=== PATIENT | female | born 1990 | race Caucasian/White ===

== ENCOUNTER 2021-06-07 18:45 | Inpatient (IN) ==
[2021-06-07] MEDS ORDERED: LACTATED RINGER'S 1,000 ML IV PRN (18:56)
[2021-06-07] MEDS ORDERED: OXYTOCIN 30 UNITS/500 ML BAG IV PRN ×2 (18:56→22:38)
--- NOTE | 2021-06-07 19:05 | History & Physical Report ---
Date of Service June 07, 2021 Assessment & Plan (1) : Plan: 31 y/o at 40 1/7 wga in labor VSS, initial BP was taken during a contraction, will repeat Fetus cat 1 Labor - manage expectantly GBS neg Epidural PRN History of Present Illness Chief Complaint: Contractions Primary Care Provider: NO PCP 31 y/o at 40 1/7 wga w/ MARCI 9/4 by LMP 08/30 who presents w/ c/o ctx increasing in frequency and intensity. +FM; denies LOF, VB PNI: Hx LGA x 2 (9+ both) Rh neg Past BILINGUAL SECRETARY Hx: G1 2016 at 38 wks, 9lb 2 oz G2 2019 at 41 wks, 9lb 6oz G3 current Menarche 14, cycles q30d Denies hx STIs Denies hx abnl pap, 08/2019 pap wnl reported Allergies Allergy/AdvReac Type Severity Reaction Status Date / Time No Known Allergies Allergy Verified 06/07/21 19:07 Home Medications Medication Instructions Recorded Confirmed Type prenat.vits,eugenia,uej-nwlt-jrdyv 1 tab PO DAILY 10/23/20 06/07/21 History Patient History Medical History (Updated 06/07/21 @ 19:20 by Minnie Valdivia MD) No pertinent past medical history Surgical History (Updated 06/07/21 @ 19:14 by Minnie Valdivia MD) No pertinent past surgical history Social History (Updated 10/23/20 @ 13:50 by Shaina Bravo) Smoking Status: Never smoker marital status: marital status details: Ashutosh (30) [phone] Current Living Situation: Spouse Current Living Situation Comment: lives with spouse, children, no pets current occupational status: unemployed Physical Exam Constitutional: WD/WN, vitals as above Respiratory: normal respiratory effort; no respiratory distress and no labored breathing Psychiatric: A+Ox3, euthymic affect Genitourinary: OB Exam Abdomen: + vertex and + estimated weight (9) Manual OB Exam: + cervical dilation 5 cm, + cervical effacement 70% and + station -2 OB Exam Monitor Tracing: + external FHT monitor used, + external uterine monitor used (q3-5) and + category I (135/mod/+accel/-decel) Results & Data ([facility]) Vital Signs (Past 12 Hours) Vital Signs Pulse BP 06/07/21 18:53 83 142/80 H Laboratory Results OB Labs: Blood Type O Negative 10/29/20 Antibody Screen NEGATIVE 03/11/21 Hemoglobin 11.7 g/dL (12.0-16.0) L 03/11/21 Hematocrit 35.9 % (37-47) L 03/11/21 Mean Corpuscular Volume 84.8 fL (80-100) 10/29/20 Platelet Count 349 K/uL (130-400) 10/29/20 Rubella IgG Antibody Immune (Immune) 10/29/20 Rapid Plasma Reagin Nonreactive (Nonreactive) 10/29/20 Hepatitis B Surface Antigen Neg (Neg) 10/29/20 HIV (1&2) Ab and P24 Ag, 4th Gener Neg (Neg) 10/29/20 Glucose 1 Hour 50 gm Load 121 mg/dl (70-130) 03/11/21 OB Optional Labs: Chlamydia trachomatis RNA NOT DETECTED (NOT DETECTED) 10/29/20 Neisseria gonorrhoeae RNA NOT DETECTED (NOT DETECTED) 10/29/20 Labs Reviewed: declines genetics/cf/sma.--akh declines quad GBS neg Diagnostic Findings Ant plac Coding Level of Care Code None Diagnoses Z34.90
[2021-06-07 19:26] LABS: Hematocrit (blood only) 36.9 % (37-47); Hemoglobin 12.3 g/dL (12.0-16.0); Mean Corpuscular Hemoglobin 30.1 pg (25-34); Mean Corpuscular Hgb Conc 33.3 g/dL (32-36); Mean Corpuscular Volume 90.2 fL (80-100); Mean Platelet Volume 10.4 fL (7.4-10.4); Platelet Count 256 K/uL (130-400); RDW Standard Deviation 45.7 fL (36.4-46.3); Red Blood Count 4.09 M/uL (4.2-5.4); White Blood Count 10.55 K/uL (4.8-10.8)
[2021-06-07] MEDS ORDERED: fentaNYL citrate 100 MCG/2 ML VIAL ONE (19:35)
[2021-06-07] MEDS ORDERED: fentaNYL 2MCG/ML ROPIVACAINE 1.25MG/ML 100 ML BAG EPI ONE (19:35)
[2021-06-07] MEDS ORDERED: ePHEDrine sulfate 50 MG/ML AMP ONE (19:35)
[2021-06-07] MEDS ORDERED: SODIUM CHLORIDE 0.9% INJ 10 ML VIAL ONE (19:35)
[2021-06-07] MEDS ORDERED: BUPIVACAINE 0.25% 30 ML VIAL ONE (19:35)
[2021-06-07] MEDS ORDERED: NALOXONE HCL 1 MG in SODIUM CHLORIDE 0.9% 1000ML 1,000 ML IV PRN (20:04)
[2021-06-07] MEDS ORDERED: ONDANSETRON INJ 2 MG/ML 2 ML VIAL IV PRN (20:04)
[2021-06-07] MEDS ORDERED: ePHEDrine sulfate 50 MG/ML AMP IV PRN (20:04)
[2021-06-07] MEDS ORDERED: fentaNYL 2MCG/ML ROPIVACAINE 1.25MG/ML 100 ML BAG EPI PRN (20:04)
[2021-06-07] MEDS ORDERED: NALBUPHINE HCL INJ 10 MG/ML AMP IV PRN (20:04)
[2021-06-07] MEDS ORDERED: diphenhydrAMINE 50 MG/ML VIAL IV PRN (20:04)
[2021-06-07] MEDS ORDERED: NALOXONE HCL 0.4 MG/1 ML VIAL/CARP IV PRN (20:04)
--- NOTE | 2021-06-07 20:12 | Anesthesiology Consultation ---
Date of Service June 07, 2021 Assessment & Plan Chart Review Chart Review: Patient NOT seen in Pre Admission Testing and Acceptable Risk for Labor Epidural Consults Requested none ASA ASA2 Proposed Anesthesia Anesthesia Type: Labor Epidural and CSE Risk / Benefits Reviewed With: PT / POA / Parent / Guardian, Accepts Plan and Informed Consent Obtained History Height/Weight Height: 5 ft 8 in Weight: 96.615 kg Allergies Allergy/AdvReac Type Severity Reaction Status Date / Time No Known Allergies Allergy Verified 06/07/21 19:07 Medications Home Medications Medication Instructions Recorded Confirmed Last Taken prenat.vits,eugenia,pim-qsat-nlaxx 1 tab PO DAILY 10/23/20 06/07/21 06/06/21 20:00 Active Medications Generic Name Dose Route Start Last Admin Trade Name Freq PRN Reason Stop Dose Admin Lactated Ringer's 1,000 mls @ 125 mls/hr 06/07/21 18:56 06/07/21 19:33 Lr IV 06/09/21 18:55 125 mls/hr .Q8H PRN Infusion L&D Protocol Protocol NPO Date Last Intake of Fluids: 06/07/21 Time Last Intake of Fluids: 18:00 Date Last Intake of Solids: 06/07/21 Time Last Intake of Solids: 12:00 Past Medical History Medical History (Updated 06/07/21 @ 19:20 by Minnie Valdivia MD) No pertinent past medical history Exercise / Class Metabolic Activity II 4-5 Yardwork/Stairs/Walk up hill Past Surgical History Surgical History (Updated 06/07/21 @ 19:14 by Minnie Valdivia MD) No pertinent past surgical history Past Anesthesia History No Hx of Anesthesia Complications and No Family Hx of Anesthesia Complications History of PONV No Hx of PONV and No Hx of Motion Sickness Social History Smoking Status: Never smoker Hx Alcohol Use: No Hx Substance Use: No substance use type: does not use Review of Systems no chest pain or sob Physical Exam Vital Signs Last Vital Signs Temp 37.1 C 06/07/21 19:09 Pulse 83 06/07/21 19:09 Resp 18 06/07/21 19:09 BP 142/80 H 06/07/21 19:09 ENMT Mouth: no TMJ abnormality Thyromental Distance: > or= 3.5 Finger Breadths Mallampati Class: II Neck normal visual inspection Respiratory normal respiratory effort Auscultation: lungs clear to auscultation bilaterally Cardiovascular Rate/Rhythm: regular rate and regular rhythm Musculoskeletal Spine: normal cervical ROM Neurologic moves all extremities Psychiatric Orientation: alert and oriented x 3 Testing Laboratory Results 06/07/21 19:15
--- NOTE | 2021-06-07 22:25 | Delivery Summary ---
Vaginal Delivery Summary Date of Service June 07, 2021 Vaginal Delivery Summary and 2nd Degree LAC PREOPERATIVE DIAGNOSIS: 1. Single intrauterine at 40 1/7 wga 2. Labor 3. History of LGA 4. Rh negative POSTOPERATIVE DIAGNOSIS: 1. Single intrauterine at 40 1/7 wga 2. Labor 3. History of LGA 4. Rh negative 5. Delivered PROCEDURE: 1. Normal spontaneous vaginal delivery. SURGEON: Minnie Valdivia MD ANESTHESIA: Epidural. ESTIMATED BLOOD LOSS: 300 mL FLUIDS: Continuous LR. URINE OUTPUT: None. COMPLICATIONS: None. CONDITION: Stable. INDICATIONS: 31 y/o at 40 1/7 wga presented w/ c/o ctx increasing in frequency and intensity at around 7pm. She was checked and found to be 5cm. She was given an epidural for pain control. She then underwent spontaneous rupture of membranes and was found to be complete and desired to push approxima tely 2 hours later. FINDINGS: A viable male weight pending with Apgars of 8 and 9 at 1 and 5 minutes respectively. SPECIMEN: Cord blood OPERATIVE REPORT: The patient progressed to 10 cm, 100% effaced and +2 station, pushed over intact perineum with anesthesia to deliver a viable male , weight and Apgars as above. Head of delivered in CHASITY position. No nuchal cord was present. Body and shoulders were delivered without difficulty. was delivered to maternal abdomen and nursing staff. Delayed cord clamping was performed for 60 seconds. Cord was clamped and cut. Cord blood was obtained. Placenta delivered spontaneously intact with 3-vessel cord. IV oxytocin and fundal massage were given for excellent hemostasis. Vagina, cervix, perineum, and placenta were inspected. A second degree laceration was noted and repaired in the usual fashion using 3-0 Vicryl. Sponge and needle counts correct x2. No sponges were left behind. Mother and stable in immediate period. [facility] Vaginal Delivery Charge Vaginal Delivery Codes: 31579 global code for the antepartum, delivery, and post- Delivery Type Details: and 2nd Degree LAC
[2021-06-07] MEDS ORDERED: bisacodyL 10 MG SUPP PR PRN (22:38)
[2021-06-07] MEDS ORDERED: DIPHTHERIA/TETANUS/PERTUSSIS 0.5 ML SYR/VIAL IM ONE (22:38)
[2021-06-07] MEDS ORDERED: SUPERCREAM 0.870% 15 GM JAR EXT PRN (22:38)
[2021-06-07] MEDS ORDERED: ACETAMINOPHEN 325 MG TAB PO PRN (22:38)
[2021-06-07] MEDS ORDERED: HYDROCORTISONE ACETATE 25 MG SUPP PR PRN (22:38)
[2021-06-07] MEDS ORDERED: BENZOCAINE 20% AER SPR 82.5 GM CAN EXT PRN (22:38)
[2021-06-08] MEDS: IBUPROFEN 600 MG TAB PO PRN ×5 (04:41→23:17)
--- NOTE | 2021-06-08 06:55 | Obstetrical Progress Note ---
Date of Service June 08, 2021 Assessment & Plan (1) : 31 yo PP1 from , doing well -Meeting all pp milestones -O-/rubella immune/, baby Rh neg -f/u 6 weeks for appt, plan for d/c home tomorrow Subjective Ambulation: ambulating normally Voiding: no voiding problems Passing Gas:: Yes Diet Tolerance:: regular diet Lochia:: Moderate Feeding Type:: breast feeding Pain well managed with medication Review of Systems Denies fevers, chills, n/v, RAZA, CP, SOB Physical Exam Constitutional WD/WN, vitals as above no acute distress Respiratory normal respiratory effort, lungs clear to auscultation Cardiovascular RRR, no murmur, no edema Gastrointestinal (Abdomen) Percussion/Palpation: abdomen soft; abdomen nontender fundus firm at umbilicus and NT Musculoskeletal BLE symmetric, nonerythematous, nontender Results & Data ([facility]) Vital Signs (Past 12 Hours) Vital Signs Temp Pulse Pulse Resp BP BP Pulse Ox 06/08/21 04:42 98.2 F 98 H 18 125/76 06/08/21 00:05 97.7 F 81 18 124/80 06/07/21 23:49 81 125/60 06/07/21 23:45 20 06/07/21 23:27 74 134/62 06/07/21 23:15 18 06/07/21 23:12 91 H 129/60 06/07/21 22:57 76 125/64 06/07/21 22:45 18 06/07/21 22:42 79 122/58 L 06/07/21 22:30 20 06/07/21 22:28 74 122/59 L 06/07/21 22:15 20 06/07/21 22:00 97.9 F 18 06/07/21 21:59 83 121/69 06/07/21 21:46 93 H 96 06/07/21 21:45 18 06/07/21 21:42 83 119/67 06/07/21 21:40 82 96 06/07/21 21:35 92 H 96 06/07/21 21:30 93 H 97 06/07/21 21:25 89 97 06/07/21 21:20 104 H 99 06/07/21 21:15 100 H 98 06/07/21 21:12 88 123/56 L 06/07/21 21:10 81 98 06/07/21 21:05 79 98 06/07/21 21:00 81 97 06/07/21 20:56 77 16 118/56 L 06/07/21 20:55 90 98 06/07/21 20:52 87 16 118/64 06/07/21 20:50 96 H 99 06/07/21 20:46 92 H 16 128/63 06/07/21 20:45 84 96 06/07/21 20:42 86 115/71 06/07/21 20:41 95 H 18 91 06/07/21 20:40 87 95 06/07/21 20:36 86 129/64 06/07/21 20:35 91 H 18 97 06/07/21 20:30 93 H 16 126/58 L 97 06/07/21 20:28 89 18 122/59 L 06/07/21 20:26 92 H 18 114/58 L 06/07/21 20:25 85 97 06/07/21 20:24 78 20 111/59 L 06/07/21 20:22 79 20 119/57 L 06/07/21 20:20 80 97 06/07/21 20:19 75 18 125/60 06/07/21 20:15 96 H 100 06/07/21 20:10 88 100 06/07/21 19:09 98.8 F 83 18 142/80 H
[2021-06-08] MEDS: DOCUSATE SODIUM 100 MG CAP PO SCH ×2 (07:46→20:51)
[2021-06-08] MEDS: PRENATAL VITAMIN 1 TAB PO SCH (07:46)
--- NOTE | 2021-06-08 08:06 | Anesthesiology Progress Note ---
Date of Service June 08, 2021 Anesthesia Post Procedure Vital Signs Vital Signs: Temp Pulse Pulse Resp BP BP Pulse Ox 06/08/21 04:42 36.8 C 98 H 18 125/76 06/08/21 00:05 36.5 C 81 18 124/80 06/07/21 23:49 81 125/60 06/07/21 23:45 20 06/07/21 23:27 74 134/62 06/07/21 23:15 18 06/07/21 23:12 91 H 129/60 06/07/21 22:57 76 125/64 06/07/21 22:45 18 06/07/21 22:42 79 122/58 L 06/07/21 22:30 20 06/07/21 22:28 74 122/59 L 06/07/21 22:15 20 06/07/21 22:00 36.6 C 18 06/07/21 21:59 83 121/69 06/07/21 21:46 93 H 96 06/07/21 21:45 18 06/07/21 21:42 83 119/67 06/07/21 21:40 82 96 06/07/21 21:35 92 H 96 06/07/21 21:30 93 H 97 06/07/21 21:25 89 97 06/07/21 21:20 104 H 99 06/07/21 21:15 100 H 98 06/07/21 21:12 88 123/56 L 06/07/21 21:10 81 98 06/07/21 21:05 79 98 06/07/21 21:00 81 97 06/07/21 20:56 77 16 118/56 L 06/07/21 20:55 90 98 06/07/21 20:52 87 16 118/64 06/07/21 20:50 96 H 99 06/07/21 20:46 92 H 16 128/63 06/07/21 20:45 84 96 06/07/21 20:42 86 115/71 06/07/21 20:41 95 H 18 91 06/07/21 20:40 87 95 06/07/21 20:36 86 129/64 06/07/21 20:35 91 H 18 97 06/07/21 20:30 93 H 16 126/58 L 97 06/07/21 20:28 89 18 122/59 L 06/07/21 20:26 92 H 18 114/58 L 06/07/21 20:25 85 97 06/07/21 20:24 78 20 111/59 L 06/07/21 20:22 79 20 119/57 L 06/07/21 20:20 80 97 06/07/21 20:19 75 18 125/60 06/07/21 20:15 96 H 100 06/07/21 20:10 88 100 06/07/21 19:09 37.1 C 83 18 142/80 H 06/07/21 18:53 37.1 C 83 18 142/80 H Notes Mental Status: alert / awake / arousable Nausea / Vomiting: adequately controlled Pain: adequately controlled Airway Patency, RR, SpO2: stable & adequate BP & HR: stable & adequate Hydration State: stable & adequate Neuraxial Anesthesia: was administered, sensory block is resolving and see Notes below (epidural catheter removed with tip intact) Anesthetic Complications: no major complications apparent
--- NOTE | 2021-06-08 08:06 | Anesthesia Procedure Note ---
Date of Service June 08, 2021 Anesthesia Post Epidural Note Vital Signs Vital Signs: Temp Pulse Resp BP Pulse Ox 36.8 C 98 H 18 125/76 96 06/08/21 04:42 06/08/21 04:42 06/08/21 04:42 06/08/21 04:42 06/07/21 21:46 Notes Mental Status: alert / awake / arousable Nausea / Vomiting: adequately controlled Pain: adequately controlled Airway Patency, RR, SpO2: stable & adequate BP & HR: stable & adequate Hydration State: stable & adequate Neuraxial Anesthesia: was administered and sensory block is resolving Anesthetic Complications: no major complications apparent Epidural: Removed without complications and With tip intact
[2021-06-08] MEDS ORDERED: bisacodyL 5 MG TABEC PO SCH (20:00)
--- NOTE | 2021-06-09 06:08 | Obstetrical Progress Note ---
Date of Service <Yareli Stevens MD - Last Filed: 06/09/21 07:13> June 09, 2021 Assessment & Plan <Yareli Stevens MD - Last Filed: 06/09/21 07:13> (1) Vaginal delivery: 31 yo now PPD2 from at 40wk2d -Continue routine care, anticipated d/c today, discussed d/c with patient -Vitals reviewed- HDS, afebrile -Blood type O-, GBS-, Rubella immune -Rh neg, received Rhogam at 28 wks, baby also Rh neg -Encourage ambulation, regular diet -Pain control with Motrin, Tylenol PRN -Encourage -Hgb 12.3 on admission, asymptomatic -F/u in 6 weeks with OB <Jessy Mora MD, FACOG - Last Filed: 06/09/21 08:05> (1) Vaginal delivery: Subjective <Yareli Stevens MD - Last Filed: 06/09/21 07:13> Ambulation: ambulating normally Voiding: no voiding problems Passing Gas:: Yes Diet Tolerance:: regular diet Lochia:: Small Feeding Type:: breast feeding Current Pain Level(1-10): 0 Pt and baby doing well, no acute events or complaints. Has not passed BM yet. Pain well managed with medication Review of Systems Denies fevers/chills. Denies dyspnea, cough. Denies chest pain. Denies breast pain or discharge. Denies dysuria. Denies headache. Physical Exam <Yareli Stevens MD - Last Filed: 06/09/21 07:13> General: Alert, oriented, no acute distress Cardiac: Regular rate and rhythm, normal S1, S2. No murmurs appreciated. Respiratory: Clear to auscultation b/l with good air flow entry, symmetric chest rise and fall. No wheezes or crackles. No increased work of breathing or accessory muscle use Abdomen: Soft, nontender, nondistended. Fundus firm and palpable at 2 cm below umbilicus. No guarding or rebound. Skin: No rashes or lesions Extremities: Warm, dry, well-perfused with capillary refill <2s b/l. No lower extremity edema, erythema or swelling. Negative Saira's sign b/l. Results & Data ([facility]) <Yareli Stevens MD - Last Filed: 06/09/21 07:13> Vital Signs (Past 12 Hours) Vital Signs Temp Pulse Resp BP 06/08/21 23:15 36.9 C 83 18 121/82 06/08/21 20:10 36.4 C L 94 H 18 119/74 <Jessy Mora MD, FACOG - Last Filed: 06/09/21 08:05> Co-Signing Physician Notes Resident Physician Supervision Note: I interviewed and examined the patient. Discussed with Dr. Stevens and agree with findings and plan as documented in the note. Any exceptions or clarifications are listed here: [None] Documented By: Jessy Mora MD, FACOG Resident Activity Tracking <Yareli Stveens MD - Last Filed: 06/09/21 07:13> Resident Involvement: Resident Care Provided Care Provided: OB Delivery
[2021-06-09] MEDS: DOCUSATE SODIUM 100 MG CAP PO SCH (07:49)
[2021-06-09] MEDS: PRENATAL VITAMIN 1 TAB PO SCH (07:49)
[2021-06-09] MEDS: IBUPROFEN 600 MG TAB PO PRN (07:49)
== END 2021-06-09 10:15 | disposition home or self-care (01) | DRG 807 ==
LOC: OPB 18:45 → 4S1 18:45 → 4S2 06-08 00:14

== ENCOUNTER 2023-05-20 07:48 | Inpatient (IN) ==
[2023-05-20] MEDS ORDERED: LIDOCAINE 1% LOCAL 20 ML VIAL INFIL PRN (07:53)
[2023-05-20] MEDS ORDERED: OXYTOCIN 30 UNITS/500 ML BAG IV PRN ×3 (07:53→19:09)
--- NOTE | 2023-05-20 07:59 | History & Physical Report ---
Date of Service May 20, 2023 Assessment & Plan (1) Cholestasis during : Plan Plan for induction. Favorable cervix. plan pitocin and arom. Fetus category one. Admission and Anticipated Discharge Date Admission Date: May 20, 2023 History of Present Illness Chief Complaint: cholestasis Primary Care Provider: NO PCP Patient is a 33yowf with iup at 38 4/7 who was recently diagnosed with cholestasis. Reassuring testing. Given gestational age, recommendation for induction. Favorable cervix. Minimal contractions. Good fm. and Delivery Plans Need for Rhogam d/t Rh negative mother given 03/09/23-KESHIA Hx LGA EFW 98% at 36 weeks Gestational diabetes - patient declined glucose testing. Declines blood sugar monitoring or follow-up with dietary. Declines monitoring/ testing. *Wkly NSTs @32wks and Twice wkly @36wks *Serial growth US @28wks *Deliver by [facility] Cholestasis elevated bile acids at 38 weeks OB Labs: Blood Type O Negative 11/11/22 Antibody Screen NEGATIVE 03/09/23 Hemoglobin 10.7 g/dl (12.0-16.0) L 03/09/23 Hematocrit 32.5 % (37.0-47.0) L 03/09/23 Mean Corpuscular Volume 84.8 fL (80.0-100.0) 11/11/22 Platelet Count 336 K/uL (130-400) 11/11/22 Rubella IgG Antibody Immune (Immune) 11/11/22 Rapid Plasma Reagin Nonreactive (Nonreactive) 11/11/22 Hepatitis B Surface Antigen Neg (Neg) 10/29/20 Hepatitis B Surface Antigen. NON-REACTIVE (NON-REACTIVE) 11/11/22 Hepatitis C Antibody (EIA) NON-REACTIVE (NON-REACTIVE) 11/11/22 HIV (1&2) Ab and P24 Ag, 4th Gener Neg (Neg) 10/29/20 HIV (1&2) Ag and Ab Confirmation NON-REACTIVE (NON-REACTIVE) 11/11/22 Glucose 1 Hour 50 gm Load 83 mg/dl (70-130) 12/15/22 OB Optional Labs: Chlamydia trachomatis RNA Not Detected (NotDetected) 11/11/22 Neisseria gonorrhoeae RNA Not Detected (NotDetected) 11/11/22 Labs Reviewed: declines cfdna, cf/sma - sln gbs neg Allergies Allergy/AdvReac Type Severity Reaction Status Date / Time No Known Allergies Allergy Verified 05/18/23 09:10 Home Medications Medication Instructions Recorded Confirmed Type prenat.vits,eugenia,opx-wqtq-yrtwl 1 tab PO DAILY 10/23/20 05/20/23 History Patient History Medical History (Updated 05/20/23 @ 08:04 by Christina Owusu MD, FACOG) History of chicken pox Surgical History No pertinent past surgical history Family History Denies family history of Ovarian cancer Breast cancer Colorectal cancer Social History Smoking Status: Never smoker Second Hand Exposure: No; Do You Dip or Chew Tobacco: No; Hx Alcohol Use: No Hx Substance Use: No Preferred Language: [place] Islander Communication Ability: Effective Forensic Identification Specialist Required: No Beliefs That Will Affect Care: None marital status: marital status details: Ashutosh Hua (33) [phone] Current Living Situation: Spouse Current Living Situation Comment: lives with spouse, 3 children, no pets current occupational status: unemployed current occupation: homemaker Other Information That Helps Us Care for You: No Feels Safe at Home: Yes Safety Concerns: Feels Safe At This Time Assistive Devices: None OB History Past Pregnancies Del. Date GA wks Lbr Lgth wt Sex Type del Anes Place Del Prov ? Comment 01/04/17 38 9lb 2oz F Epidu ral Other [place] No Cholestasis 06/20/19 41 9lb 6oz. 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
[2023-05-20 08:22] LABS: Hematocrit (blood only) 33.3 % (37.0-47.0); Hemoglobin 10.7 g/dl (12.0-16.0); Mean Corpuscular Hemoglobin 28.2 pg (25.0-34.0); Mean Corpuscular Hgb Conc 32.1 g/dL (32.0-36.0); Mean Corpuscular Volume 87.6 fL (80.0-100.0); Platelet Count 276 K/uL (130-400); RDW Coefficient of Variation 15.1 % (11.5-14.5); RDW Standard Deviation 47.5 fL (36.4-46.3); White Blood Count 11.13 K/ul (4.8-10.8)
[2023-05-20] MEDS: LACTATED RINGER'S 1,000 ML IV PRN ×3 (09:00→15:58)
[2023-05-20] MEDS ORDERED: ePHEDrine sulfate 50 MG/ML AMP ONE (15:00)
[2023-05-20] MEDS ORDERED: fentaNYL citrate PF 100 MCG/2 ML VIAL ONE (15:00)
[2023-05-20] MEDS ORDERED: BUPIVACAINE 0.25% PF 30 ML VIAL ONE (15:01)
[2023-05-20] MEDS ORDERED: LIDOCAINE 2%/EPINEPHRINE 1:200,000 20 ML PF ONE (15:01)
[2023-05-20] MEDS ORDERED: fentaNYL 2MCG/ML ROPIVACAINE 1.25MG/ML 100 ML BAG EPI ONE (15:01)
[2023-05-20] MEDS ORDERED: SODIUM CHLORIDE 0.9% PF INJ 10 ML VIAL ONE (15:01)
[2023-05-20] MEDS ORDERED: ONDANSETRON INJ 2 MG/ML 2 ML VIAL IV PRN (15:50)
[2023-05-20] MEDS ORDERED: fentaNYL citrate PF 100 MCG/2 ML VIAL EPI STA (15:50)
[2023-05-20] MEDS ORDERED: fentaNYL citrate PF 100 MCG/2 ML VIAL EPI PRN (15:50)
[2023-05-20] MEDS ORDERED: ePHEDrine sulfate 50 MG/ML AMP IV PRN (15:50)
[2023-05-20] MEDS ORDERED: NALOXONE HCL 1 MG in SODIUM CHLORIDE 0.9% 1000ML 1,000 ML IV PRN (15:50)
[2023-05-20] MEDS ORDERED: SODIUM CHLORIDE 0.9% PF INJ 10 ML VIAL EPI PRN (15:50)
[2023-05-20] MEDS ORDERED: NALBUPHINE HCL INJ 10 MG/ML AMP IV PRN (15:50)
[2023-05-20] MEDS ORDERED: NALOXONE HCL 0.4 MG/1 ML VIAL/CARP IV PRN (15:50)
[2023-05-20] MEDS ORDERED: SODIUM CHLORIDE 0.9% PF INJ 10 ML VIAL EPI STA (15:50)
[2023-05-20] MEDS ORDERED: ROPIVACAINE 0.5% PF 5 MG/ML 20 ML VIAL EPI PRN (15:50)
[2023-05-20] MEDS ORDERED: BUPIVACAINE 0.25% PF 30 ML VIAL EPI PRN (15:50)
[2023-05-20] MEDS ORDERED: fentaNYL 2MCG/ML ROPIVACAINE 1.25MG/ML 100 ML BAG EPI PRN (15:50)
[2023-05-20] MEDS ORDERED: LIDOCAINE 2%/EPINEPHRINE 1:200,000 20 ML PF EPI STA (15:50)
[2023-05-20] MEDS ORDERED: BUPIVACAINE 0.25% PF 30 ML VIAL EPI STA (15:50)
[2023-05-20] MEDS ORDERED: diphenhydrAMINE 50 MG/ML VIAL IV PRN (15:50)
[2023-05-20] MEDS ORDERED: LIDOCAINE 2% MPF LOCAL 5 ML VIAL EPI PRN (15:50)
--- NOTE | 2023-05-20 15:52 | Anesthesiology Consultation ---
Date of Service May 20, 2023 Assessment & Plan Chart Review Chart Review: Patient NOT seen in Pre Admission Testing and Acceptable Risk for Labor Epidural Consults Requested none ASA ASA2 Proposed Anesthesia Anesthesia Type: Labor Epidural Risk / Benefits Reviewed With: PT / POA / Parent / Guardian, Accepts Plan and Informed Consent Obtained History Height/Weight Height: 5 ft 9 in Weight: 88.904 kg Allergies Allergy/AdvReac Type Severity Reaction Status Date / Time No Known Allergies Allergy Verified 05/18/23 09:10 Medications Home Medications Medication Instructions Recorded Confirmed Last Taken prenat.vits,eugenia,ssk-vyxq-brwab 1 tab PO DAILY 10/23/20 05/20/23 05/19/23 Active Medications Generic Name Dose Route Start Last Admin Trade Name Freq PRN Reason Stop Dose Admin Lactated Ringer's 1,000 mls @ 125 mls/hr 05/20/23 07:53 05/20/23 15:03 Lr IV 05/22/23 07:52 999 mls/hr .Q8H PRN Administration L&D Protocol Protocol Oxytocin 30 units in 500 mls @ 16 mls/hr 05/20/23 08:55 05/20/23 14:45 Pitocin IV 05/22/23 08:54 0.96 units/hr .Q24H PRN 16 mls/hr Labor Induction/Augmentation Titration Protocol 0.96 UNITS/HR Past Medical History Medical History (Updated 05/20/23 @ 08:04 by Christina Owusu MD, FACOG) History of chicken pox Exercise / Class Metabolic Activity II 4-5 Yardwork/Stairs/Walk up hill Past Family History Family History Denies family history of Ovarian cancer Breast cancer Colorectal cancer Past Surgical History Surgical History No pertinent past surgical history Past Anesthesia History No Hx of Anesthesia Complications and No Family Hx of Anesthesia Complications History of PONV No Hx of PONV and No Hx of Motion Sickness Social History Smoking Status: Never smoker Do You Dip or Chew Tobacco: No Hx Alcohol Use: No Hx Substance Use: No substance use type: does not use Physical Exam Vital Signs Last Vital Signs Temp 36.6 C 05/20/23 11:30 Pulse 71 08/18/23 15:46 Resp 20 05/20/23 14:30 BP 126/58 L 05/20/23 14:31 Pulse Ox 99 05/20/23 15:46 ENMT Mouth: no dentition abnormality Thyromental Distance: > or= 3.5 Finger Breadths Mallampati Class: II Neck normal visual inspection Respiratory normal respiratory effort Auscultation: lungs clear to auscultation bilaterally Cardiovascular Rate/Rhythm: regular rate and regular rhythm Psychiatric Orientation: alert Testing Laboratory Results 05/20/23 08:09
--- NOTE | 2023-05-20 16:49 | Labor Progress Brief Note ---
Date of Service May 20, 2023 Subjective comfortable with epidural. Assessment & Plan (1) Cholestasis during : Plan continue current management. fetus category one. anticipate . Admission and Anticipated Discharge Date Admission Date: May 20, 2023 Physical Exam Physical Exam: cx--5/75/-2 toco--q2-4min, pit at 16 efm--115 with mod variabiltiy, accels to the 160s, no decels arom--clear. Results & Data Vital Signs (Past 12 Hours) Vital Signs Temp Pulse Resp BP Pulse Ox 05/20/23 08:27 36.7 C 20 05/20/23 16:45 99 05/20/23 16:45 67 05/20/23 16:45 90/45 L 05/20/23 16:45 74 05/20/23 16:45 95/47 L 05/20/23 16:40 100 05/20/23 16:40 89 05/20/23 16:35 100 05/20/23 16:35 96 H 05/20/23 16:30 100 05/20/23 16:30 82 05/20/23 16:30 116/58 L 05/20/23 16:30 16 05/20/23 16:30 16 05/20/23 16:10 16 05/20/23 16:10 16 05/20/23 16:15 18 05/20/23 16:15 18 05/20/23 16:20 16 05/20/23 16:20 16 05/20/23 16:28 75 05/20/23 16:28 121/58 L 05/20/23 16:25 99 05/20/23 16:25 83 05/20/23 15:00 18 05/20/23 15:00 36.7 C 18 05/20/23 16:20 100 05/20/23 16:20 75 05/20/23 16:21 74 05/20/23 16:21 117/71 05/20/23 16:15 100 05/20/23 16:15 78 05/20/23 16:15 125/59 L 05/20/23 16:12 90 05/20/23 16:12 113/70 05/20/23 16:10 99 05/20/23 16:10 96 H 05/20/23 16:10 113/68 05/20/23 16:08 101 H 05/20/23 16:08 123/58 L 05/20/23 16:06 95 H 05/20/23 16:06 124/62 05/20/23 16:05 99 05/20/23 16:05 83 05/20/23 16:05 125/58 L 05/20/23 16:02 76 05/20/23 16:02 131/67 05/20/23 16:00 100 05/20/23 16:00 75 05/20/23 16:01 80 05/20/23 16:01 127/68 05/20/23 15:55 99 05/20/23 15:55 79 05/20/23 15:46 99 05/20/23 15:46 71 05/20/23 15:41 100 05/20/23 15:41 74 05/20/23 14:30 20 05/20/23 14:30 20 05/20/23 14:31 80 05/20/23 14:31 126/58 L 05/20/23 13:30 16 05/20/23 13:30 16 05/20/23 13:41 72 05/20/23 13:41 122/69 05/20/23 13:00 20 05/20/23 13:00 20 05/20/23 12:58 74 05/20/23 12:58 118/57 L 05/20/23 12:30 16 05/20/23 12:30 16 05/20/23 12:00 20 05/20/23 12:00 20 05/20/23 11:30 20 05/20/23 11:30 36.6 C 20 05/20/23 11:44 80 05/20/23 11:44 121/58 L 05/20/23 11:00 77 05/20/23 11:00 119/57 L 05/20/23 10:30 20 05/20/23 10:30 20 05/20/23 09:34 90 05/20/23 09:34 108/65 05/20/23 09:22 81 05/20/23 09:22 100/57 L 05/20/23 09:04 78 05/20/23 09:04 106/53 L 05/20/23 09:01 78 05/20/23 09:01 117/58 L 05/20/23 09:00 83 05/20/23 09:00 121/59 L 05/20/23 08:17 89 125/64 Coding Level of Care Code None Diagnoses Cholestasis during O26.619; K83.1
--- NOTE | 2023-05-20 16:58 | Obstetrical Progress Note ---
Date of Service <Artemio Espinal MD - Last Filed: 05/21/23 07:14> May 20, 2023 Assessment & Plan <Artemio Espinal MD - Last Filed: 05/21/23 07:14> (1) care following vaginal delivery: Plan 33 yo , status post on 05/20/23 - Pt doing well clinically. Feels well today. Eating well, voiding well, ambulating well. Pain well controlled with PRN pain meds. - Routine care -- OOB, ambulation, diet progression as tolerated Vital Signs reviewed and WNL. (Tmax at 36.7) Hemoglobin Reviewed. 10.7 (05/20/23) ___ (today). Blood Type: O-, GBS-, Rubella Immune. Encourage ambulation, monitor and control pain with Motrin PRN, resume regular diet, monitor lochia. Breast feeding encouraged. After discharge will have 6 week follow-up with Dr. Owusu. <Christina Owusu MD, FACOG - Last Filed: 05/21/23 07:45> (1) care following vaginal delivery: Subjective <Artemio Espinal MD - Last Filed: 05/21/23 07:14> Ambulation: ambulating normally (slow and difficult but still doing it) Voiding: no voiding problems and no incontinence (no constipation) Passing Gas:: No Diet Tolerance:: regular diet Lochia:: Moderate Feeding Type:: breast feeding Current Pain Level(1-10): 5 (back pain of 5 (cam after feeding ); cramping is 7 or 8 while feeding) 33 yo F, , s/p , day 1 Constitutional: + fatigue; no fever or no chills Eyes: no diplopia or no worsening vision Respiratory: no cough or no dyspnea Cardiovascular: no chest pain or no palpitations Breast: no breast pain Gastrointestinal: no nausea, no vomiting or no diarrhea/loose stools Genitourinary (female): no dysuria Musculoskeletal: + back pain (epidural site); no myalgia (no calf pain) Integumentary: no rash Neurologic: no tingling or no numbness Physical Exam <Artemio Espinal MD - Last Filed: 05/21/23 07:14> Constitutional WD/WN, vitals as above Respiratory normal respiratory effort, lungs clear to auscultation Cardiovascular RRR, no murmur, no edema Gastrointestinal (Abdomen) normal bowel sounds, soft, nontender, no hepatosplenomegaly uterine fundus felt a few cm below the umbilicus Musculoskeletal Extremities: extremities normal to inspection (no calf pain or tenderness) Results & Data <Artemio Espinal MD - Last Filed: 05/21/23 07:14> Vital Signs (Past 12 Hours) Vital Signs Temp Pulse Resp BP Pulse Ox 05/20/23 08:27 36.7 C 20 05/20/23 16:55 99 05/20/23 16:55 72 05/20/23 16:54 68 05/20/23 16:54 104/51 L 05/20/23 16:50 100 05/20/23 16:50 63 05/20/23 16:48 74 05/20/23 16:48 91/52 L 05/20/23 16:45 99 05/20/23 16:45 67 05/20/23 16:45 90/45 L 05/20/23 16:45 74 05/20/23 16:45 95/47 L 05/20/23 16:40 100 05/20/23 16:40 89 05/20/23 16:35 100 05/20/23 16:35 96 H 05/20/23 16:30 100 05/20/23 16:30 82 05/20/23 16:30 116/58 L 05/20/23 16:30 16 05/20/23 16:30 16 05/20/23 16:10 16 05/20/23 16:10 16 05/20/23 16:15 18 05/20/23 16:15 18 05/20/23 16:20 16 05/20/23 16:20 16 05/20/23 16:28 75 05/20/23 16:28 121/58 L 05/20/23 16:25 99 05/20/23 16:25 83 05/20/23 15:00 18 05/20/23 15:00 36.7 C 18 05/20/23 16:20 100 05/20/23 16:20 75 05/20/23 16:21 74 05/20/23 16:21 117/71 05/20/23 16:15 100 05/20/23 16:15 78 05/20/23 16:15 125/59 L 05/20/23 16:12 90 05/20/23 16:12 113/70 05/20/23 16:10 99 05/20/23 16:10 96 H 05/20/23 16:10 113/68 05/20/23 16:08 101 H 05/20/23 16:08 123/58 L 05/20/23 16:06 95 H 05/20/23 16:06 124/62 05/20/23 16:05 99 05/20/23 16:05 83 05/20/23 16:05 125/58 L 05/20/23 16:02 76 05/20/23 16:02 131/67 05/20/23 16:00 100 05/20/23 16:00 75 05/20/23 16:01 80 05/20/23 16:01 127/68 05/20/23 15:55 99 05/20/23 15:55 79 05/20/23 15:46 99 05/20/23 15:46 71 05/20/23 15:41 100 05/20/23 15:41 74 05/20/23 14:30 20 05/20/23 14:30 20 05/20/23 14:31 80 05/20/23 14:31 126/58 L 05/20/23 13:30 16 05/20/23 13:30 16 05/20/23 13:41 72 05/20/23 13:41 122/69 05/20/23 13:00 20 05/20/23 13:00 20 05/20/23 12:58 74 05/20/23 12:58 118/57 L 05/20/23 12:30 16 05/20/23 12:30 16 05/20/23 12:00 20 05/20/23 12:00 20 05/20/23 11:30 20 05/20/23 11:30 36.6 C 20 05/20/23 11:44 80 05/20/23 11:44 121/58 L 05/20/23 11:00 77 05/20/23 11:00 119/57 L 05/20/23 10:30 20 05/20/23 10:30 20 05/20/23 09:34 90 05/20/23 09:34 108/65 05/20/23 09:22 81 05/20/23 09:22 100/57 L 05/20/23 09:04 78 05/20/23 09:04 106/53 L 05/20/23 09:01 78 05/20/23 09:01 117/58 L 05/20/23 09:00 83 05/20/23 09:00 121/59 L 05/20/23 08:17 89 125/64 <Christina Owusu MD, FACOG - Last Filed: 05/21/23 07:45> Co-Signing Physician Notes Resident Physician Supervision Note: I interviewed and examined the patient. Discussed with Dr. Espinal and agree with findings and plan as documented in the note. Any exceptions or clarifications are listed here: Doing well. Undecided about d/c. Routine care. Documented By: Christina Owusu MD, FACOG
[2023-05-20] MEDS ORDERED: oxyCODONE/ACETAMINOPHEN 5mg/325mg TAB PO PRN (19:09)
[2023-05-20] MEDS ORDERED: DIPHTHERIA/TETANUS/PERTUSSIS Vaccine (Tdap, Age 7+yrs) 0.5mL SYR/VL IM ONE (19:09)
[2023-05-20] MEDS ORDERED: HYDROCORTISONE ACETATE 25 MG SUPP PR PRN (19:09)
[2023-05-20] MEDS ORDERED: ACETAMINOPHEN 325 MG TAB PO PRN (19:09)
[2023-05-20] MEDS ORDERED: bisacodyL 10 MG SUPP PR PRN (19:09)
--- NOTE | 2023-05-20 19:19 | Delivery Summary ---
Vaginal Delivery Summary Date of Service May 20, 2023 Vaginal Delivery Summary and 2nd Degree LAC Pre-operative Diagnosis: at 38 weeks cholestasis of Post-operative Diagnosis: same Procedure: pitocin induction epidural arom second degree laceration and repair EBL: 300cc Anesthesia: epidural Procedure: Patient presented to labor and delivery for induction for recent diagnosis of choestasis of . Her cervix was favorable and pitocin was started. She then eventually underwent an epidural. At 5cm she had arom for copious clear fluid. She then progressed quickly to c/c/+3. The patient pushed for two contractions to deliver a viable male in horace position. The nose and mouth were bulb suctioned on the perineum and the rest of the was then delivered without difficulty. The baby was vigorous. The nose and mouth were again bulb suctioned and the was placed in the maternal abdomen for drying and attention. Cord was clamped and cut at one minute of life. Cord blood and segment obtained. Placenta delivered spontaneous, intact with a three vessel cord. Cervix/sulci/rectum were intact. A second degree perineal laceration was repaired in the normal standard fashion. Hemostasis obtained with dilute pitocin and fundal massage. Apgars were 8/9. Mother and baby doing well at the end of the delivery. [facility] Vaginal Delivery Charge Delivery Type Details: and 2nd Degree LAC
[2023-05-20] MEDS: DOCUSATE SODIUM 100 MG CAP PO SCH (20:59)
[2023-05-20] MEDS: BENZOCAINE 20% SPRY 85 APPLN/85 GM CAN EXT PRN (21:00)
[2023-05-20] MEDS: IBUPROFEN 600 MG TAB PO PRN (21:58)
[2023-05-21] MEDS: IBUPROFEN 600 MG TAB PO PRN ×4 (03:17→15:38)
[2023-05-21 07:36] LABS: Hematocrit (blood only) 29.2 % (37.0-47.0); Hemoglobin 9.4 g/dl (12.0-16.0)
[2023-05-21] MEDS ORDERED: PRENATAL VITAMIN 1 TAB PO SCH (08:00)
[2023-05-21] MEDS: DOCUSATE SODIUM 100 MG CAP PO SCH ×2 (08:29→19:07)
[2023-05-21] MEDS: BENZOCAINE 20% SPRY 85 APPLN/85 GM CAN EXT PRN (19:05)
[2023-05-21] MEDS ORDERED: bisacodyL 5 MG TABEC PO SCH (20:00)
== END 2023-05-21 19:47 | disposition home or self-care (01) | DRG 805 ==
LOC: 4S1 07:48 → 4E2 22:09